=== PATIENT | female | born 1955 | race Caucasian/White ===

== ENCOUNTER 2019-12-14 10:05 | Emergency (ER) | payer MEDICARE, OTHER ==
--- NOTE | 2019-12-14 11:14 | EDM.PDOC ---
ED HPI GENERAL MEDICAL PROBLEM - General Chief Complaint: Neuro Symptoms/Deficits Stated Complaint: TINGLING LEFT ARM AND RIGHT ARM, LIGHTED HEADED Time Seen by Provider: 12/14/19 10:15 Source of Information: Reports: Patient History Limitations: Reports: No Limitations - History of Present Illness INITIAL COMMENTS - FREE TEXT/NARRATIVE: pt comes in ambulatory with concerns for recurrent brief episodes of light headed ness and numbness at left upper extremity since yesterday comes only for few minuets and happened about 4-5 times, she is asymptomatic here, denies any HAs, neck pain , any chest pain or other resp or CV or neuro sx or any systemic sx or other concerns. she is a smoker, denies alcohol regular use and denies known Hx of significant morbidities. - Related Data Allergies Allergy/AdvReac Type Severity Reaction Status Date / Time strawberry Allergy Hives Verified 12/14/19 10:15 Home Meds: Home Meds Levothyroxine [Synthroid] 88 mcg PO ACBREAKFAST 06/21/16 [History] Aspirin [Halfprin] 81 mg DAILY 12/14/19 [History] Losartan [Cozaar] 100 mg PO DAILY 12/14/19 [History] atorvaSTATin [Lipitor] 20 mg PO DAILY 12/14/19 [History] hydroCHLOROthiazide [Hydrochlorothiazide] 12.5 mg DAILY 12/14/19 [History] Past Medical History HEENT History: Reports: Other (See Below) Other HEENT History: ASTIGMATISM; PRESBYOPIA; MYOPIA Cardiovascular History: Reports: High Cholesterol, Hypertension Respiratory History: Reports: None Gastrointestinal History: Reports: GERD Genitourinary History: Reports: None [employer] History: Reports: Other [employer]OR History: Musculoskeletal History: Reports: None Neurological History: Reports: Migraines Psychiatric History: Reports: Anxiety Endocrine/Metabolic History: Reports: Hypothyroidism Hematologic History: Reports: None Immunologic History: Reports: None Oncologic (Cancer) History: Reports: None Dermatologic History: Reports: Eczema - Past Surgical History Head Surgeries/Procedures: Reports: None GI Surgical History: Reports: EGD Female Surgical History: Reports: Hysterectomy Social & Family History - Family History Family Medical History: Noncontributory - Tobacco Use Smoking Status *Q: Current Every Day Smoker Years of Tobacco use: 20 Packs/Tins Daily: 0.7 - Caffeine Use Caffeine Use: Reports: Coffee - Recreational Drug Use Recreational Drug Use: No ED ROS GENERAL - Review of Systems Review Of Systems: See Below Constitutional: Reports: No Symptoms HEENT: Reports: No Symptoms Respiratory: Reports: No Symptoms Cardiovascular: Reports: Lightheadedness GI/Abdominal: Reports: No Symptoms : Reports: No Symptoms Musculoskeletal: Reports: No Symptoms Skin: Reports: No Symptoms Neurological: Reports: Numbness Psychiatric: Reports: No Symptoms ED EXAM, GENERAL - Physical Exam Exam: See Below Exam Limited By: No Limitations General Appearance: Alert, No Apparent Distress Eye Exam: Bilateral Eye: Normal Inspection Nose: Normal Inspection Throat/Mouth: Normal Inspection Head: Atraumatic, Normocephalic Neck: Normal Inspection, Supple, Non-Tender Respiratory/Chest: No Respiratory Distress, Lungs Clear, Normal Breath Sounds Cardiovascular: Normal Peripheral Pulses, Regular Rate, Rhythm, No Murmur GI/Abdominal: Normal Bowel Sounds, Soft, Non-Tender, No Distention Extremities: Normal Inspection, Normal Range of Motion Neurological: Alert, Oriented, CN II-XII Intact, Normal Reflexes, No Motor/Sensory Deficits Psychiatric: Normal Affect Skin Exam: Warm, Dry Course - Vital Signs Text/Narrative:: EKG shows NSR , labs unremarkable except for mild hyponatremia , TSH is WNL. pt is asymptomatic , has intermittent paraesthesia at LUE and mild / short lasting dizzy spells , she is medically stable to follow on those issues with PCP for farther evaluation. meanwhile recommended good hydration and abstinence from tobacco use. Last Recorded V/S: Last Vital Signs Temp 36.5 C 12/14/19 10:08 Pulse 67 12/14/19 11:05 Resp 18 12/14/19 11:05 BP 153/90 H 12/14/19 11:05 Pulse Ox 100 12/14/19 11:05 - Orders/Labs/Meds Orders: Active Orders 24 hr Category Date Time Status EKG Documentation Completion [RC] ASDIRECTED Care 12/14/19 11:14 Active EKG 12 Lead [EK] Routine Ther 12/14/19 11:14 Ordered Labs: Laboratory Tests 12/14/19 12/14/19 12/14/19 Range/Units 11:25 11:25 11:25 WBC 7.7 (4.5-12.0) X10-3/uL RBC 5.23 H (3.23-5.20) x10(6)uL Hgb 15.5 (11.5-15.5) g/dL Hct 47.2 (30.0-51.3) % MCV 90.2 (80-96) fL MCH 29.6 (27.7-33.6) pg MCHC 32.8 (32.2-35.4) g/dL RDW 12.2 (11.5-15.5) % Plt Count 303 (125-369) X10(3)uL Sodium 131 L (135-145) mmol/L Potassium 4.9 (3.5-5.3) mmol/L Chloride 97 L (100-110) mmol/L Carbon Dioxide 29 (21-32) mmol/L BUN 13 (7-18) mg/dL Creatinine 0.9 (0.55-1.02) mg/dL Est Cr Clr Drug Dosing 54.60 mL/min Estimated GFR (MDRD) > 60 (>60) BUN/Creatinine Ratio 14.4 (9-20) Glucose 92 (80-116) mg/dL Calcium 9.6 (8.6-10.2) mg/dL Total Bilirubin 0.7 (0.1-1.3) mg/dL AST 19 (5-25) IU/L ALT 20 (12-36) U/L Alkaline Phosphatase 70 (56-112) IU/L Troponin I < 4.0 L (4.0-60.3) pg/mL Total Protein 7.4 (6.0-8.0) g/dL Albumin 4.2 (3.2-4.6) g/dL Globulin 3.2 g/dL Albumin/Globulin Ratio 1.3 TSH, Ultra Sensitive 0.57 (0.36-3.74) IU/mL Departure - Departure Time of Disposition: 12:15 Disposition: Home, Self-Care 01 Clinical Impression: Dizziness - Discharge Information Referrals: Arianna Clancy PA-C [Primary Care Provider] - Forms: ED Department Discharge Sepsis Event Note (ED) - Evaluation Sepsis Screening Result: No Definite Risk - Focused Exam Vital Signs: Vital Signs Temp Pulse Resp BP Pulse Ox 12/14/19 11:05 67 18 153/90 H 100 12/14/19 10:08 36.5 C 81 18 168/115 H 99 - My Orders Last 24 Hours: My Active Orders 12/14/19 11:14 EKG Documentation Completion [RC] ASDIRECTED EKG 12 Lead [EK] Routine - Assessment/Plan Last 24 Hours: My Active Orders 12/14/19 11:14 EKG Documentation Completion [RC] ASDIRECTED EKG 12 Lead [EK] Routine
[2019-12-14 12:38] VITALS: BP 164/84; PULSE 57
== END 2019-12-14 12:31 | disposition home or self-care (01) ==
LOC: FB.ED 10:05
DX: R42 Dizziness and giddiness (principal); E78.00 Pure hypercholesterolemia, unspecified; I10 Essential (primary) hypertension; E03.9 Hypothyroidism, unspecified; F41.9 Anxiety disorder, unspecified; F17.210 Nicotine dependence, cigarettes, uncomplicated; Z91.018 Allergy to other foods; Z79.82 Long term (current) use of aspirin; Z79.899 Other long term (current) drug therapy
CPT/HCPCS: 36415; 80053; 84443; 84484; 85027; 93005; 99284-25

== ENCOUNTER 2021-07-27 18:38 | Emergency (ER) | payer MEDICARE, OTHER ==
[2021-07-27] MEDS ORDERED: LORazepam Conc Solution 2 MG/ML 30 ML Bottle PO STA (19:00)
[2021-07-27] MEDS ORDERED: LORazepam 1 MG Tab ONE (19:03)
[2021-07-27] MEDS ORDERED: LORazepam 1 MG Tab PO ONE (19:27)
[2021-07-27 20:39] VITALS: BP 142/88; PULSE 76
== END 2021-07-27 20:09 | disposition home or self-care (01) ==
LOC: FB.ED 18:38
DX: F41.9 Anxiety disorder, unspecified (principal); E87.1 Hypo-osmolality and hyponatremia; E78.00 Pure hypercholesterolemia, unspecified; I10 Essential (primary) hypertension; K21.9 Gastro-esophageal reflux disease without esophagitis; E03.9 Hypothyroidism, unspecified; Z72.0 Tobacco use; Z91.018 Allergy to other foods; Z79.82 Long term (current) use of aspirin; Z79.899 Other long term (current) drug therapy
CPT/HCPCS: 36415; 71045; 80053; 83880; 84484; 85025; 99283; 99285-25; A9270-GY

== ENCOUNTER 2021-08-31 07:03 | Day surgery (SDC) | payer MEDICARE, OTHER ==
[~2021-08-31 07:03] MED LIST: Lactated Ringers 1,000 ML IV PRN
[2021-08-31] MEDS ORDERED: Sodium Chloride 0.9% 10 ML Syringe IV ONE (07:04)
[2021-08-31] MEDS ORDERED: fentaNYL 100 MCG/2 ML SDV IV ONE (07:04)
[2021-08-31] MEDS ORDERED: Midazolam 1 MG/ML 2 ML SDV IV ONE (07:04)
[2021-08-31] MEDS: Sodium Chloride 0.9% 10 ML Syringe FLUSH PRN (08:01)
[2021-08-31] MEDS: acetaZOLAMIDE 500 MG Cap.ER PO ONE (09:24)
[2021-09-01 15:13] VITALS: BP 104/65; PULSE 55
== END 2021-09-01 09:45 | disposition home or self-care (01) ==
LOC: FB.SDS 07:03
PROVIDERS: ATTEND Ophthalmology
DX: H25.13 Age-related nuclear cataract, bilateral (principal); H02.831 Dermatochalasis of right upper eyelid; H02.834 Dermatochalasis of left upper eyelid; H35.033 Hypertensive retinopathy, bilateral; H52.13 Myopia, bilateral; F41.9 Anxiety disorder, unspecified; F17.210 Nicotine dependence, cigarettes, uncomplicated; Z79.899 Other long term (current) drug therapy; Z91.018 Allergy to other foods; I10 Essential (primary) hypertension
CPT/HCPCS: 00142-QZ; A9270-GY; J2250; J3010; J3490; V2632

== ENCOUNTER 2021-09-14 08:25 | Day surgery (SDC) | payer MEDICARE, OTHER ==
[2021-09-14] MEDS ORDERED: Midazolam 1 MG/ML 2 ML SDV IV ONE (08:26)
[2021-09-14] MEDS ORDERED: fentaNYL 100 MCG/2 ML SDV IV ONE (08:26)
[2021-09-14] MEDS ORDERED: Sodium Chloride 0.9% 10 ML Syringe IV ONE (08:26)
[2021-09-14] MEDS ORDERED: Lactated Ringers 1,000 ML IV PRN (08:30)
[2021-09-14] MEDS ORDERED: Sodium Chloride 0.9% 10 ML Syringe FLUSH PRN (08:30)
[2021-09-14 08:54] VITALS: BP 140/85; PULSE 58
[2021-09-14] MEDS ORDERED: acetaZOLAMIDE 500 MG Cap.ER PO ONE (11:00)
== END 2021-09-14 11:17 | disposition home or self-care (01) ==
LOC: FB.SDS 08:25
PROVIDERS: ATTEND Ophthalmology
DX: H25.13 Age-related nuclear cataract, bilateral (principal); H02.831 Dermatochalasis of right upper eyelid; H02.834 Dermatochalasis of left upper eyelid; H35.033 Hypertensive retinopathy, bilateral; H52.13 Myopia, bilateral; F41.9 Anxiety disorder, unspecified; F17.210 Nicotine dependence, cigarettes, uncomplicated; I10 Essential (primary) hypertension; E78.00 Pure hypercholesterolemia, unspecified; E03.9 Hypothyroidism, unspecified; Z91.018 Allergy to other foods; Z79.890 Hormone replacement therapy; Z79.899 Other long term (current) drug therapy
CPT/HCPCS: 00142-QZ; A9270-GY; J2250; J3010; J3490; V2632